=== PATIENT | female | born 1980 | race African-American/Black ===

== ENCOUNTER 2023-02-09 08:49 | Outpatient (CLI) | payer OTHER, SELFPAY ==
--- NOTE | 2023-02-09 | ECG_ITS ---
Measurements Intervals [place] Rate: 116 P: 66 [place]: 150 QRS: 43 QRSD: 84 T: 13 QT: 309 QTc: 430 Interpretive Statements SINUS TACHYCARDIA POSSIBLE LEFT ATRIAL ENLARGEMENT NONSPECIFIC T-WAVE ABNORMALITY- INFERIOR LEADS ABNORMAL ECG NO PREVIOUS ECG AVAILABLE FOR COMPARISON Electronically Signed On 02-09-2023 10:19:47 CDT by Franklin Allred D.O.
== END 2023-02-09 08:50 | disposition home or self-care (01) ==
LOC: ANHCARD 08:54
DX: F90.2 Attention-deficit hyperactivity disorder, combined type (principal); Z51.81 Encounter for therapeutic drug level monitoring; R94.31 Abnormal electrocardiogram [ECG] [EKG]
CPT/HCPCS: 93005

== ENCOUNTER 2023-05-02 08:21 | Outpatient (CLI) | payer OTHER, SELFPAY ==
--- NOTE | ~2023-05-02 | MM_ITS ---
EXAMINATION: MM screening amelia BI w travis HISTORY: Baseline screening mammogram TECHNIQUE: Craniocaudal and mediolateral oblique 3-D tomosynthesis images were obtained and synthetic 2-D images were generated. CAD analysis was submitted and interpreted. COMPARISON: None, baseline BREAST PARENCHYMAL COMPOSITION: There are scattered areas of fibroglandular density. FINDINGS: No suspicious mass, calcification, or architectural distortion are identified in either kenny ast to suggest malignancy. IMPRESSION: 1. No mammographic evidence of malignancy. 2. Recommend routine screening mammography in one year. BI-RADS Category 1: Negative Reviewed, dictated and finalized at location A.
== END 2023-05-02 08:22 | disposition home or self-care (01) ==
LOC: ANHIMG 08:22
PROVIDERS: PCP Nurse Practitioner Family; Visit Provider Nurse Practitioner
DX: Z12.31 Encounter for screening mammogram for malignant neoplasm of breast (principal)
CPT/HCPCS: 77063; 77067